=== PATIENT | female | born 1965 | race Caucasian/White ===

== ENCOUNTER 2023-10-31 10:56 | Emergency (ER) | payer OTHER, SELFPAY ==
[2023-10-31] VITALS (13 sets, daily range): BP systolic 84–128; BP diastolic 60–80; PULSE 68–106; RESP 10–19; TEMP 37; O2SAT 92–100
--- NOTE | 2023-10-31 11:08 | ECG_ITS ---
Test Date: 2023-10-31 11:13:28 Measurements Intervals [place] Rate: 99 P: 9 OK: 149 QRS: -18 QRSD: 89 T: 8 QT: 349 QTc: 448 Interpretive Statements SINUS RHYTHM LOW QRS VOLTAGE IN PRECORDIAL LEADS [QRS DEFLECTION < 1.0 mV IN CHEST LEADS] POOR R-WAVE PROGRESSION No previous ECG available for comparison Electronically Signed On 10-31-2023 13:39:40 CDT by Omar De La Cruz M.D.
--- NOTE | 2023-10-31 11:13 | ED.AMS ---
HPI - Altered Mental Status General Chief Complaint: Altered Mental Status Stated Complaint: ams Time Seen by Provider: 10/31/23 11:00 History of Present Illness HPI narrative: 58-year-old female presenting to the emergency department for evaluation for suspected exhaustion. Patient reports she had been standing outside a local [facility] institution since 7:00 a.m.. Patient began to feel lightheaded and dizzy. Patient was tachycardic when EMS arrived. IV fluids were started and patient did begin to feel improved. Patient reports he did have stents placed in her legs approximately 2 weeks ago at [facility]. Patient denies any prior history of coronary artery disease, patient has a stress test last year that was negative. Related Data Allergies Allergy/AdvReac Type Severity Reaction Status Date / Time Sulfa (Sulfonamide AdvReac Vomiting Verified 10/31/23 12:58 Antibiotics) Review of Systems Review of Systems: All systems reviewed & are unremarkable except as noted in HPI and below Exam Narrative: APPEARANCE: Well appearing, no pain, no distress, well-nourished. HEAD: normocephalic, atraumatic. EYES: PERRLA/EOMI, conjunctivae clear. NOSE: Normal no drainage EARS:TMS clear with good light reflex. THROAT: Pharynx clear, no exudate. NECK: Supple. No adenopathy, no masses. RESPIRATORY: Airway patent, respirations nonlabored. Clear to auscultation bilaterally, no rales, rhonchi, wheezing. CARDIOVASCULAR: Regular rate and rhythm without murmurs rubs or gallops. ABDOMINAL: Soft, nontender, nondistended, normal bowel sounds MUSCULOSKELETAL: Moves all extremities. Strength/ROM intact, No edema, No calf tenderness. NEURO: Alert. Cranial nerves II through XII intact. Grossly intact SKIN: Warm, dry. Normal Color Course Course Emergency Course: Patient felt improved with treatment and requested discharge to home. Vital Signs Vital signs: Vital Signs Pulse Rate 106 H 10/31/23 11:00 Respiratory Rate 17 10/31/23 11:00 Temperature 98.6 F 10/31/23 11:04 Pulse Rate 68 10/31/23 15:18 Respiratory Rate 14 10/31/23 15:18 Blood Pressure 104/68 10/31/23 15:18 Pulse Oximetry 96 10/31/23 15:18 Oxygen Delivery Room Air 06/25/24 12:00 MDM - Altered Mental Status MDM Narrative Medical decision making narrative: 58-year-old female presents emergency department for evaluation suspect heat exhaustion. Patient's IV fluids that were started by EMS were continued. Patient states she does feel improved rehydration. Patient is afebrile with no leukocytosis and a stable hemoglobin. Patient has no significant electrolyte abnormalities and normal kidney function. Patient was complaining of some mild chest pressure but patient had negative serial troponins. UA shows no evidence of infection. Patient was able to ambulate at her baseline. Patient is requesting discharge home. Suspect heat exhaustion has the underlying etiology. Patient was comfortable the plan for discharge and close follow-up. Differential Diagnosis Differential diagnosis: Likely other (ACS, dehydration, heat exhaustion) Lab Data Attestation: I reviewed the patient's lab results. 10/31/23 11:28 10/31/23 11:28 Labs: Lab Results 10/31/23 10/31/23 10/31/23 Range/Units 11:28 13:17 14:20 WBC 6.9 (4.5-10.0) K/mm3 RBC 3.76 L (4.2-5.4) M/mm3 Hgb 11.0 L (12.0-15.0) g/dL Hct 35.3 L (37.0-47.0) % MCV 93.9 (80-100) fl MCH 29.3 (26-34) pg MCHC 31.2 L (32-36) g/dl RDW 13.4 (11.5-14.5) % Plt Count 266 (150-375) k/mm3 MPV 9.0 (7.4-10.4) fl Immature Gran % (Auto) 0.7 H (0-0.5) % Neut % (Auto) 61.8 (45.5-73.1) % Lymph % (Auto) 22.2 (18.3-44.2) % [place] % (Auto) 7.1 (2.6-8.5) % Eos % (Auto) 7.0 H (0-4.4) % Baso % (Auto) 1.2 (0.2-1.2) % Lymph # (Auto) 1.53 (0.9-3.2) K/mm3 [place] # (Auto) 0.5 (0.1-0.6) K/mm3 Eos # (Auto)
[2023-10-31 11:34] LABS: Basophils Absolute Auto 0.1 K/mm3 (0.0-0.1); Basophils Percent Auto 1.2 % (0.2-1.2); Eosinophils Absolute Auto 0.5 K/mm3 (0-0.3); Hematocrit 35.3 % (37.0-47.0); Immature Granulocyte Absolute 0.05 K/mm3 (0.00-0.031); Immature Granulocyte Percent A 0.7 % (0-0.5); Lymphocytes Absolute Auto 1.53 K/mm3 (0.9-3.2); Lymphocytes Percent Auto 22.2 % (18.3-44.2); Mean Corpuscular HGB Conc 31.2 g/dl (32-36); Mean Corpuscular Hemoglobin 29.3 pg (26-34); Mean Corpuscular Volume 93.9 fl (80-100); Monocytes Absolute Auto 0.5 K/mm3 (0.1-0.6); Monocytes Percent Auto 7.1 % (2.6-8.5); Neutrophils Absolute Auto 4.3 K/mm3 (1.3-6.7); Neutrophils Percent Auto 61.8 % (45.5-73.1); Platelet Count Result 266 k/mm3 (150-375); Red Blood Count 3.76 M/mm3 (4.2-5.4); Red Cell Distribution Width 13.4 % (11.5-14.5); White Blood Count 6.9 K/mm3 (4.5-10.0)
[2023-10-31 11:42] LABS: Lactic Acid Reflex 1.9 mmol/L (0.7-2.0)
[2023-10-31 11:43] LABS: Alanine Aminotransferase 45 U/L (6-35); Albumin Level 3.9 g/dL (3.5-5.1); Alkaline Phosphatase 104 U/L (38-126); Anion Gap 8 mmol/L (4-12); Aspartate Amino Transferase 42 U/L (14-36); Bilirubin,Total 0.5 mg/dL (0.2-1.3); Blood Urea Nitrogen 22 mg/dL (7-17); Calcium 8.9 mg/dL (8.4-10.2); Carbon Dioxide 22 mmol/L (22-30); Chloride 109 mmol/L (98-107); Estimated CRCL calculation 68 ml/min; Estimated Glomerular Filt Rate 57; Glucose 97 mg/dL (65-110); Lipase 124 U/L (23-300); Potassium 3.9 mmol/L (3.4-5.0); Sodium 139 mmol/L (137-145)
[2023-10-31] MEDS: Please add drug allergy info to patient profile. 1 EACH XX (12:59)
[2023-10-31] MEDS: SODIUM CHLORIDE 0.9% IV 1,000 ML 999 ML IV CONT (12:59)
[2023-10-31] MEDS: ACETAMINOPHEN 500 MG TABLET 1000 MG PO (12:59)
[2023-10-31 13:13] LABS: Troponin I < 0.012 ng/mL (0.000-0.034)
[2023-10-31 13:26] LABS: Appearance Urine Clear (Clear); Bilirubin Urine Negative (Negative); Blood Urine Negative (Negative); Color Urine Yellow (Yellow); Glucose Urine UA 2+ mg/dL (Negative); Ketones Urine Negative (Negative); Leukocyte Esterase Ur Negative LEU/UL (Negative); Nitrate Urine Negative (Negative); Protein Urine Negative (Negative); Specific Grav Ur 1.012 (1.001-1.035); pH Urine 5.5 (5.0-9.0)
[2023-10-31 13:32] LABS: Add Urine Microscopic? NO
--- NOTE | 2023-10-31 14:15 | ECG_ITS ---
Test Date: 2023-10-31 14:19:54 Measurements Intervals [place] Rate: 70 P: 52 DC: 168 QRS: -18 QRSD: 89 T: 2 QT: 416 QTc: 452 Interpretive Statements SINUS RHYTHM LOW QRS VOLTAGE IN PRECORDIAL LEADS [QRS DEFLECTION < 1.0 mV IN CHEST LEADS] POOR R-WAVE PROGRESSION Compared to ECG 10/31/2023 11:13:28 NO SIGNIFICANT CHANGES Electronically Signed On 11-01-2023 11:44:10 CDT by Omar De La Cruz M.D.
[2023-10-31 15:05] LABS: Troponin I < 0.012 ng/mL (0.000-0.034)
--- NOTE | 2023-10-31 15:20 | PC.NURSE ---
This RN attempted to ambulate patient x1 assist, patient demonstrated an unsteady gait but stated I feel fine , patient swaying and using mathew to help w/ambulation. MD made aware, no new orders.
== END 2023-10-31 15:36 | disposition home or self-care (01) ==
PROVIDERS: Emergency Provider Emergency Medicine
DX: T67.5XXA Heat exhaustion, unspecified, initial encounter (principal); X30.XXXA Exposure to excessive natural heat, initial encounter
CPT/HCPCS: 36415; 80053; 81003; 83605; 83690; 84484; 85025; 93005; 96360; 96361; 99284; A9270; J7030